=== PATIENT | female | born 1950 | race Caucasian/White ===

== ENCOUNTER 2020-09-16 09:45 | Outpatient (CLI) | payer MEDICARE | END 2020-09-16 09:46 | disposition home or self-care (01) | LOC: CSHMAMMO 09:45 | PROVIDERS: ATTEND Internal Medicine | DX: Z12.31 Encounter for screening mammogram for malignant neoplasm of breast (principal) | CPT/HCPCS: 77063; 77067 ==

== ENCOUNTER 2020-09-30 14:25 | Outpatient (CLI) | payer MEDICARE | END 2020-09-30 14:26 | disposition home or self-care (01) | LOC: CSHRAD 14:25 | PROVIDERS: ATTEND Internal Medicine | DX: M25.572 Pain in left ankle and joints of left foot (principal); M77.32 Calcaneal spur, left foot ==

== ENCOUNTER 2020-10-15 15:19 | Outpatient (CLI) | payer MEDICARE | END 2020-10-15 15:20 | disposition home or self-care (01) | LOC: CSHULT 15:19 | PROVIDERS: ATTEND Internal Medicine | DX: R20.9 Unspecified disturbances of skin sensation (principal) | CPT/HCPCS: 93923 ==

== ENCOUNTER 2021-10-06 09:59 | Outpatient (CLI) | payer MEDICARE | END 2021-10-06 10:00 | disposition home or self-care (01) | LOC: CSHMAMMO 09:59 | PROVIDERS: ATTEND Internal Medicine | DX: Z12.31 Encounter for screening mammogram for malignant neoplasm of breast (principal); Z13.820 Encounter for screening for osteoporosis; Z78.0 Asymptomatic menopausal state; M85.89 Other specified disorders of bone density and structure, multiple sites | CPT/HCPCS: 77063; 77067; 77080 ==

== ENCOUNTER 2022-11-13 12:01 | Outpatient (CLI) | payer MEDICARE | END 2022-11-13 12:02 | disposition home or self-care (01) | LOC: CSHMAMMO 12:01 | PROVIDERS: ATTEND Internal Medicine | DX: Z12.31 Encounter for screening mammogram for malignant neoplasm of breast (principal) ==

== ENCOUNTER 2023-04-12 09:22 | Outpatient (CLI) | payer MEDICARE | END 2023-04-12 09:23 | disposition home or self-care (01) | LOC: CSHCT 09:22 | PROVIDERS: ATTEND Internal Medicine | DX: R31.0 Gross hematuria (principal); N28.9 Disorder of kidney and ureter, unspecified; Z93.2 Ileostomy status | CPT/HCPCS: 74178; 82565 ==

== ENCOUNTER 2024-06-23 10:21 | Outpatient (CLI) | payer MEDICARE | END 2024-06-23 10:22 | disposition home or self-care (01) | LOC: CSHMAMMO 10:21 | PROVIDERS: ATTEND Internal Medicine | DX: Z12.31 Encounter for screening mammogram for malignant neoplasm of breast (principal); Z78.0 Asymptomatic menopausal state; M85.89 Other specified disorders of bone density and structure, multiple sites | CPT/HCPCS: 77063; 77067; 77080 ==